=== PATIENT | male | born 1960 | race Caucasian/White ===

== ENCOUNTER 2018-09-02 03:01 | Day surgery (SDC) | payer BC ==
[~2018-09-02] VITALS: Ht 180.3 cm; Wt 78.5 kg
[~2018-09-02 03:01] MED LIST: OLM20 PO
[2018-09-02 15:00] VITALS: BP 154/107
[2018-09-02] MEDS ORDERED: fentaNYL CITR 250 MCG/5 ML AMP ONE (15:05)
[2018-09-02] MEDS ORDERED: PROPOFOL EMUL(*) 10MG/ML 20 ML 20 ML ONE (15:06)
[2018-09-02 15:07] LABS: PLATELET COUNT, AUTOMATED 216 K/uL (150-450)
[2018-09-02] MEDS ORDERED: LIDOCAINE 2% IV 100 MG/5ML SYR ONE (15:07)
[2018-09-02] MEDS ORDERED: MIDAZOLAM 2 MG/2 ML VIAL IVP PRN (15:45)
[2018-09-02] MEDS ORDERED: LIDOCAINE/SOD BICARB 8.4% SYR ID ONE (15:45)
[2018-09-02] MEDS ORDERED: CELECOXIB 200 MG CAP PO ONE (15:45)
[2018-09-02] MEDS ORDERED: ceFAZolin(*) 2GM/D5W 50ML 50 ML IVPB ONE (15:45)
[2018-09-02] MEDS ORDERED: FAMOTIDINE 20 MG TAB PO ONE (15:45)
[2018-09-02] MEDS ORDERED: NORMOSOL R SOLN(*) 1000 ML BAG 1,000 ML IV PRN (15:45)
[2018-09-02] MEDS ORDERED: DEXAMETHASONE SOD 4 MG/ML VIAL ONE (16:49)
[2018-09-02] MEDS ORDERED: ONDANSETRON 4 MG/2 ML VIAL ONE (16:49)
[2018-09-02 18:45] VITALS: BP 143/85
[2018-09-02 18:52] VITALS: BP 143/104
[2018-09-02 18:54] VITALS: BP 144/90
[2018-09-02] MEDS ORDERED: HYDR-385 PO (19:17)
[2018-09-02] MEDS ORDERED: CEPH500T7 PO (19:18)
--- NOTE | 2018-09-02 21:29 | OPERATIVE REPORT 1 ---
EVENT DATE: September 02, 2018 SURGEON: Gilbert Cutler MD ANESTHESIOLOGIST: Lj Walters MD ANESTHESIA: General. BRUSHER: MODE Kahn PREOPERATIVE DIAGNOSIS Left ring fracture/dislocation through proximal interphalangeal joint with comminution of proximal aspect of middle phalanx. POSTOPERATIVE DIAGNOSIS Left ring fracture/dislocation through proximal interphalangeal joint with comminution of proximal aspect of middle phalanx. PROCEDURES PERFORMED 1. Application of force-couple external fixation, left ring finger, uniplanar (35767). 2. Closed reduction and percutaneous pinning, oblique fracture intra-abdominal at middle phalanx (26275). 3. Intraoperative digital radiography (34358). ESTIMATED BLOOD LOSS Minimal. INTRAVENOUS FLUIDS Crystalloid 900, no colloid. TOURNIQUET TIME 36 minutes SPECIMENS No specimens. COMPLICATIONS No complications. IMPLANTS USED Three 0.045-inch K-wires and one 0.035-inch K-wire. SUMMARY OF PROCEDURE The patient was brought into the operating room and placed on the OR table in the supine position. He was given a general anesthetic. The left upper extremity was prepped and draped in the usual sterile fashion. We did use iodine. He had advised us that external IODINE was not a problem for him despite his reported allergy to IODINE. Subsequent to this, the limb was exsanguinated after adequate drape, and then the tourniquet was inflated. We brought the C-arm into position and utilized the C-arm to triangulate the mid portion of the axis of rotation at the head of the proximal phalanx. A 0.045- inch K-wire was driven across this until there was equal distance on both sides. This was then bent by the margins so that it would be at a 90-degree angle. We moved it out of the way and capped it. We then placed a similar K-wire across the mid axis rotation under fluoroscopic guidance at the head of the middle phalanx and did this the same thing. Finally, we held the fracture reduced so that it was no longer dislocated under traction and assigned a position for the middle wire just distal to the fracture. Once we had marked this, we went ahead and drove that wire across, reduced the fracture line, and then secured it to the first K-wire placed that was now turned to run distally. Finally, both K- wires were aligned, and then a series of loops were made on the K-wires such that gentle rubber bands could be applied. We applied several to each side until it appeared that we had adequate traction, and we checked the C-arm to confirm that the reduction was anatomic. I additionally then flexed the PIP joint down to approximately 60 degrees, and it remained anatomic without rising back up to the dorsal surface. The final step was to switch positions on the C- arm so I was standing on the radial side. We introduced a 0.035-inch K-wire from the radial side and secured one of the larger fragments that was the intra- articular segment and held it up against the remaining fragments. A Jurgan ball was applied onto this pin. He was given a digital block and then a wrap to cover this construct. He was then awakened and transferred to the recovery area in stable condition. SUZI
== END 2018-09-02 18:50 | disposition home or self-care (01) ==
LOC: OR 03:01
PROVIDERS: ATTEND Orthopaedic Surgery Hand Surgery
DX: S62.645A Nondisplaced fracture of proximal phalanx of left ring finger, initial encounter for closed fracture (principal)
CPT/HCPCS: 20690; 26727; 36415; 85025; A4565; C1713; J1100; J2001; J2405; J2704; J3010; J0690